=== PATIENT | female | born 1940 | race Caucasian/White ===

== ENCOUNTER 2016-07-08 23:14 | Inpatient (IN) | payer OTHER, MEDICAID ==
[~2016-07-08] VITALS: Ht 154.9 cm; Wt 61.4 kg
--- NOTE | 2016-07-08 23:30 | NUR ---
PT BIB AMBULANCE, AAOX4 WITH C/O GENERALIZED WEAKNESS FOR 3 DAYS. PT STATED SHE NOTED HAVING ELEVATED BP AND BLOOD SUGARS.
[2016-07-08 23:55] LABS: UA SPECIFIC GRAVITY <=1.005 (1.005-1.035); microscopic required? YES; urine erythrocyte TRACE (NEGATIVE)
[2016-07-09] VITALS (8 sets, daily range): BP systolic 100–155; BP diastolic 55–91
[2016-07-09] MEDS ORDERED: TRAMADOL HCL50 MG PO (00:02)
[2016-07-09] MEDS ORDERED: CATAPRES0.1 MG PO (00:03)
[2016-07-09] MEDS ORDERED: ISOSORBIDE MONO30 MG PO (00:03)
[2016-07-09] MEDS ORDERED: FLUOXETINE20 M3 PO (00:03)
[2016-07-09] MEDS ORDERED: CLARITIN10 MG PO (00:04)
[2016-07-09] MEDS ORDERED: PROCHLORPERAZIN10 MG PO (00:04)
[2016-07-09] MEDS ORDERED: BUSPIRONE HCL10 MG PO (00:05)
[2016-07-09] MEDS ORDERED: MELOXICAM7.5 M1 PO (00:05)
[2016-07-09] MEDS ORDERED: TRAZODONE50 M1 PO (00:05)
[2016-07-09] MEDS ORDERED: MONTELUKAST SOD10 M1 PO (00:06)
[2016-07-09] MEDS ORDERED: COZAAR100 MG PO (00:06)
[2016-07-09] MEDS ORDERED: METOPROLOL SUCC50 M2 PO (00:07)
[2016-07-09] MEDS ORDERED: ARICEPT5 MG PO (00:07)
[2016-07-09] MEDS ORDERED: HCTZ/TRIAMTEREN1 CA1 PO (00:07)
[2016-07-09] MEDS ORDERED: BUSPIRONE HCL5 MG PO (00:08)
[2016-07-09] MEDS ORDERED: NOR10 PO (00:09)
[2016-07-09] MEDS ORDERED: METOCLOPRAMIDE10 MG PO (00:09)
[2016-07-09] MEDS ORDERED: EVISTA60 MG PO (00:10)
[2016-07-09] MEDS ORDERED: ACTOPLUS MET PO (00:10)
[2016-07-09] MEDS ORDERED: PRA40 PO (00:10)
[2016-07-09 00:12] LABS: BASOPHIL % 0.2 % (0-2); PLATELET COUNT 376 x10^3mcL (130-400)
[2016-07-09] MEDS ORDERED: FLUTICASON0.05 MG/Ac (00:12)
[2016-07-09] MEDS ORDERED: ANORO ELLIPTA1 POW IH (00:12)
[2016-07-09 00:21] LABS: RED CELL DISTRIBUTION WIDTH 15.8 % (11.5-14.5)
--- NOTE | 2016-07-09 00:21 | NUR ---
PT IV CONVERTED TO SALINE LOCK, IV FLUSHED WITH 10ML NS, NO S/S OF INFILTRATION.
[2016-07-09 00:25] LABS: ALKALINE PHOSPHATASE 97 U/L (46-116); ALT/SGPT 18 U/L (14-59); AST/SGOT 11 U/L (15-37); BILIRUBIN TOTAL 0.4 mg/dL (0.20-1.00); CALCIUM 8.3 mg/dL (8.5-10.1); CARBON DIOXIDE 28.6 mmol/L (21-32); CHLORIDE SERUM 88 mmol/L (98-107); CREATININE SERUM 1.4 mg/dL (0.6-1.0); GLUCOSE SERUM 334 mg/dL (74-106); SODIUM SERUM 132 mmol/L (136-145); TOTAL PROTEIN, SERUM 6.7 g/dL (6.4-8.2)
[2016-07-09 00:31] LABS: ALBUMIN 3.2 g/dL (3.4-5.0); LIPASE 2014 IU/L (73-393); POTASSIUM SERUM 2.8 mmol/L (3.5-5.1)
--- NOTE | 2016-07-09 02:09 | NUR ---
PT BACK FROM CT SCAN.
--- NOTE | 2016-07-09 03:50 | NUR ---
REPORT GIVEN TO SHILA PHAN.
[2016-07-09 04:51] LABS: CHOLESTEROL/HDL RATIO 2.1
[2016-07-09 04:58] LABS: T3 TOTAL 0.75 ng/mL
[2016-07-09 04:59] LABS: FREE T4 1.37 ng/dL (0.76-1.46); FREE THYROXINE INDEX 3.7 ug/dL (1.4-4.5); T4(THYROXINE) 10.6 ug/dL (4.7-13.3)
--- NOTE | 2016-07-09 05:30 | NUR ---
RECEIVED PATIENT FROM ER VIA [facility] DUE TO COMPLAIN OF HIGH BLOOD PRESSURE, HIGH BLOOD SUGAR, ABDOMINAL PAIN, NAUSEA AND LEG WEAKNESS. PATIENT AWAKE, ALERT, ORIENTED X3. HARD OF HEARING TO BOTH EARS, LT EYELID PTOSIS NOTED. RESPIRATION EVEN AND UNLABORED, ON ROOM. DENIES PAIN AT THIS TIME. HEALING RASH TO LEFT INNER THIGH. IV SITE TO LEFT ANTECUBITAL AREA INTACT. GENERALIZED WEAKNESS NOTED. ON TELE #37. WILL CONTINUE TO [facility].
--- NOTE | 2016-07-09 07:35 | NUR ---
RECEIVED PT IN BED IN NO ACUTE DISTRESS. AOX4. BREATHING EVEN AND UNLABORED ON ROOM AIR. TELE #37 SHOWS SR, DENIES CHEST PAIN OR PRESSURE. SKIN INTACT, NO EDEMA PRESENT. ABLE TO AMBULATE BUT GENERALIZED WEAKNESS NOTED. IV NS RUNNING AT 120 ML/HR AT [facility]. BED AT LOWEST POSITION WITH CALL LIGHT IN REACH. WILL CONTINUE TO MONITOR.
[2016-07-09 10:05] LABS: BASOPHIL % 0.4 % (0-2); PLATELET COUNT 390 x10^3mcL (130-400)
[2016-07-09 10:08] LABS: RED CELL DISTRIBUTION WIDTH 15.9 % (11.5-14.5)
[2016-07-09 10:25] LABS: CALCIUM 8.5 mg/dL (8.5-10.1); CARBON DIOXIDE 31.6 mmol/L (21-32); CHLORIDE SERUM 106 mmol/L (98-107); GLUCOSE SERUM 67 mg/dL (74-106); SODIUM SERUM 147 mmol/L (136-145)
[2016-07-09 10:40] LABS: POTASSIUM SERUM 2.6 mmol/L (3.5-5.1)
--- NOTE | 2016-07-09 11:07 | NUR ---
RECEIVED PT IN BED IN NO ACUTE DISTRESS. AOX4. AMBULATORY BUT GENERALIZED WEAKNESS NOTED. BREATHING EVEN AND UNLABORED ON ROOM AIR. DENIES CHEST PAIN OR PRESSURE. ON TELE #37, SHOWS SR. SKIN INTACT, NO EDEMA PRESENT. IV NS RUNNING AT 120 ML/HR ON LAC. BED AT LOWEST POSITION WITH CALL LIGHT IN REACH. WILL CONTINUE TO MONITOR.
[2016-07-09] MEDS ORDERED: CIPRO500 MG PO (14:18)
[2016-07-09] MEDS ORDERED: LAC PO (14:19)
[2016-07-09 17:08] LABS: CALCIUM 8.6 mg/dL (8.5-10.1); CARBON DIOXIDE 32.3 mmol/L (21-32); CHLORIDE SERUM 100 mmol/L (98-107); CREATININE SERUM 0.9 mg/dL (0.6-1.0); GLUCOSE SERUM 150 mg/dL (74-106); SODIUM SERUM 140 mmol/L (136-145)
[2016-07-09] MEDS ORDERED: ASPIR 8181 MG PO (17:25)
[2016-07-09 17:43] LABS: POTASSIUM SERUM 2.8 mmol/L (3.5-5.1)
--- NOTE | 2016-07-09 17:51 | NUR ---
DR. QUINTANILLA MADE AWARE OF K LEVEL AT 2.8. STATED NO D/C ORDER YET.
--- NOTE | 2016-07-09 22:00 | NUR ---
LATE ENTRY: - AAO X 4. SPEECH CLEAR AND APPROPRIATE. HOB ELEVATED 30 DEG. UPPER SIDE RAILS IN RAISED POSITION. CALL LIGHT WITHIN EASY REACH. DENIES HAVING PAIN AT THIS TIME.
--- NOTE | 2016-07-09 22:25 | NUR ---
SMASHER HAND REPORTED TEMP 100.1. COOLING MEASURES INITIATED.
--- NOTE | 2016-07-09 22:54 | NUR ---
PT'S DAUGHTER CALLED, PT TALKED TO HER ON THE PHONE, PT STATED OK TO PROVIDE INFORMATION TO DAUGHTER.
--- NOTE | 2016-07-09 22:58 | NUR ---
PT HAD AMBULATED TO RESTROOM WITH STEADY GAIT.
[2016-07-10 01:29] LABS: CALCIUM 8.3 mg/dL (8.5-10.1); CARBON DIOXIDE 30.9 mmol/L (21-32); CHLORIDE SERUM 104 mmol/L (98-107); CREATININE SERUM 0.9 mg/dL (0.6-1.0); GLUCOSE SERUM 134 mg/dL (74-106); MAGNESIUM 2.2 mg/dL (1.8-2.4); POTASSIUM SERUM 3.3 mmol/L (3.5-5.1); SODIUM SERUM 143 mmol/L (136-145)
[2016-07-10 06:02] VITALS: BP 170/72
[2016-07-10 06:15] LABS: BASOPHIL % 0.3 % (0-2); PLATELET COUNT 332 x10^3mcL (130-400)
[2016-07-10 06:20] LABS: CALCIUM 7.9 mg/dL (8.5-10.1); CARBON DIOXIDE 29.6 mmol/L (21-32); CHLORIDE SERUM 105 mmol/L (98-107); CREATININE SERUM 0.8 mg/dL (0.6-1.0); GLUCOSE SERUM 185 mg/dL (74-106); MAGNESIUM 2.1 mg/dL (1.8-2.4); POTASSIUM SERUM 3.7 mmol/L (3.5-5.1); SODIUM SERUM 143 mmol/L (136-145)
[2016-07-10 06:22] LABS: RED CELL DISTRIBUTION WIDTH 15.6 % (11.5-14.5)
--- NOTE | 2016-07-10 07:00 | NUR ---
IN NO ACUTE DISTRESS DURING SHIFT. BREATHING REMAINED EVEN AND UNLABORED.
[2016-07-10 08:00] VITALS: BP 181/89
--- NOTE | 2016-07-10 08:15 | NUR ---
DR LARA AND TEAM MADE ROUNDS, PLAN IS FOR PT TO GET DC THIS AFTERNOON.
--- NOTE | 2016-07-10 09:13 | NUR ---
PT WAS ENDORSE TO ME THIS MORNING, IV HEPLOCK, NO SWELLING OF REDNESS NOTED TO THE LEFT HAND. LUNGS CLEAR, NO ACUTE RESP DISTRESS NOTED. BP ELEVATED 181/89, MEDICATED WITH BP MED. PT IS STABLE AND DENIES ANY PAIN OR DISCOMFORT . CALL LIGHT IN REACH, BED IN LOW POSITION. WILL CONTINUE PLAN OF CARE.
[2016-07-10 11:03] VITALS: BP 161/73
--- NOTE | 2016-07-10 11:08 | NUR ---
CK PT BP 161/73, WILL MEDICATED WITH BP MED, DR. QUINTANILLA AWARE.
[2016-07-10 13:23] VITALS: BP 115/51
[2016-07-10 13:45] VITALS: BP 132/75
[2016-07-10 14:14] VITALS: BP 132/75
--- NOTE | 2016-07-10 16:15 | NUR ---
EXPLAINED DC INSTRUCTIONS TO PT AND ALL FORMS WERE SIGNED AND UNDERSTOOD. REMOVED BOTH HEPLOCKS FROM RIGHT HAND AND LEFT HAND, PT TOLERATED WELL. PT DENIES ANY CHEST PAIN OR DISCOMFORT. PT WILL CALL THE NURSING STATION WHEN SHE IS DRESSED AND READY TO LEAVE.
== END 2016-07-10 16:51 | disposition home or self-care (01) | DRG 438 ==
LOC: ED 23:14 → DU 07-09 02:30
PROVIDERS: Emergency Medicine; ADMIT Family Medicine
DX: K85.90 Acute pancreatitis without necrosis or infection, unspecified (principal); N17.0 Acute kidney failure with tubular necrosis; N39.0 Urinary tract infection, site not specified; N13.30 Unspecified hydronephrosis; E44.0 Moderate protein-calorie malnutrition; E87.1 Hypo-osmolality and hyponatremia; I16.0 Hypertensive urgency; E11.65 Type 2 diabetes mellitus with hyperglycemia; E11.59 Type 2 diabetes mellitus with other circulatory complications; E87.6 Hypokalemia; F41.9 Anxiety disorder, unspecified; E78.5 Hyperlipidemia, unspecified; M81.0 Age-related osteoporosis without current pathological fracture; M19.90 Unspecified osteoarthritis, unspecified site; Z68.35 Body mass index [BMI] 35.0-35.9, adult; Z79.84 Long term (current) use of oral hypoglycemic drugs
CPT/HCPCS: 82962; 83880; 84439; J0696; J3475; J3480; J3490; J7030; J8597; Q0092